=== PATIENT | male | born 1950 | race Caucasian/White ===

== ENCOUNTER 2023-07-15 18:12 | Emergency (ER) | payer BC ==
[~2023-07-15] VITALS: Ht 172.7 cm; Wt 109.9 kg
[2023-07-15 19:06] LABS: BASOPHILS % (AUTO) 0.2 % (0-1); EOSINOPHILS # (AUTO) 0.1 X10'3 (0-0.9); EOSINOPHILS % (AUTO) 0.5 % (0-6); HEMATOCRIT 41.3 % (42.0-52.0); HEMOGLOBIN 13.8 g/dl (14.0-17.9); LYMPHOCYTES # (AUTO) 1.6 X10'3 (1.1-4.8); LYMPHOCYTES % (AUTO) 12.7 % (21-51); MEAN CORPUSCULAR HEMOGLOBIN 32.3 PG (27.0-31.0); MEAN CORPUSCULAR HGB CONC 33.3 g/dL (33.0-36.5); MEAN CORPUSCULAR VOLUME 96.8 FL (78-98); MEAN PLATELET VOLUME 8.2 FL (7.4-10.4); MONOCYTES # (AUTO) 1.7 X10'3 (0-0.9); MONOCYTES % (AUTO) 13.2 % (2-12); NEUTROPHILS # (AUTO) 9.5 X10'3 (1.8-7.7); NEUTROPHILS % (AUTO) 73.4 % (42-75); PLATELET COUNT 226 X10'3 (140-440); RED BLOOD COUNT 4.27 X10'6 (4.70-6.10); RED CELL DISTRIBUTION WIDTH 14.2 % (11.5-14.5); WHITE BLOOD COUNT 12.9 X10'3 (4.5-11.0)
[2023-07-15 19:21] LABS: ALBUMIN 2.9 G/DL (3.4-5.0); ANION GAP 11 (8-16); BLOOD UREA NITROGEN 18 MG/DL (7-18); BUN/CREATININE RATIO 12.9 (10.0-20.0); CALCIUM 8.7 MG/DL (8.5-10.1); CHLORIDE 102 MMOL/L (99-107); CREATININE 1.39 MG/DL (0.60-1.10); GLUCOSE 137 MG/DL (70-104); POTASSIUM 3.9 MMOL/L (3.5-5.1); PRO BRAIN NATRIURETIC PEPTIDE 44 PG/ML (0-125); SODIUM 138 MMOL/L (135-145); TOTAL CARBON DIOXIDE 25.4 MMOL/L (24-32); eCRCL 47 ML/MIN; eGFR 50 ML/MIN
[2023-07-15] MEDS: predniSONE 20 mg tablet PO ONE (21:18)
[2023-07-15 21:19] VITALS: PULSE 110; RESP 25; O2SAT 95
[2023-07-15] MEDS: ipratropium/albuterol 3ml nebule NEB ONE (21:19)
[2023-07-15 21:25] VITALS: PULSE 114; RESP 20; O2SAT 100
[2023-07-15] MEDS: normal saline 1000ml 1,000 ML IV ONE (21:35)
[2023-07-15] MEDS ORDERED: PRED20TA PO (21:54)
[2023-07-15] MEDS ORDERED: ALBU8HFA PO (21:54)
[2023-07-15] MEDS ORDERED: AMOX-117 PO (21:54)
[2023-07-15 22:05] VITALS: BP 155/76; PULSE 90; RESP 20; TEMP 98.6; O2SAT 96
[2023-07-15] MEDS: amox tr/potassium clavulanate 875/125mg TAB PO ONE (22:15)
== END 2023-07-15 22:40 | disposition home or self-care (01) ==
LOC: ER 18:13
DX: J20.9 Acute bronchitis, unspecified (principal); N17.9 Acute kidney failure, unspecified
CPT/HCPCS: 36415; 71046; 80048; 83605; 83880; 85025; 87040; 94640; 99284; J7030; J7512

== ENCOUNTER 2023-10-17 13:19 | Emergency (ER) | payer BC ==
[~2023-10-17] VITALS: Ht 172.7 cm; Wt 114.3 kg
[2023-10-17 13:27] VITALS: TEMP 98
[2023-10-17] MEDS ORDERED: LIDO700A32 TOP (14:37)
[2023-10-17] MEDS ORDERED: CYCL-1 PO (14:37)
[2023-10-17 14:55] VITALS: BP 128/74; PULSE 72; RESP 18; O2SAT 98
[2023-10-17] MEDS: HYDROcodone/acetaminophen 5mg/325mg tablet PO ONE (14:58)
[2023-10-17] MEDS: cyclobenzaprine 10mg tablet PO ONE (14:58)
== END 2023-10-17 14:58 | disposition home or self-care (01) ==
LOC: ER 13:19
DX: S39.012A Strain of muscle, fascia and tendon of lower back, initial encounter (principal); M54.32 Sciatica, left side; Z79.899 Other long term (current) drug therapy; X58.XXXA Exposure to other specified factors, initial encounter; Y93.89 Activity, other specified; Y92.89 Other specified places as the place of occurrence of the external cause; Y99.8 Other external cause status
CPT/HCPCS: 99283